=== PATIENT | female | born 1945 | race Caucasian/White ===

== ENCOUNTER 2018-04-11 08:35 | Day surgery (SDC) | payer OTHER ==
[~2018-04-11 08:35] MED LIST: FENTANYL 100MCG/2ML SOL ONE; LIDOCAINE HCL 1% MPF 30 SOL ONE; MIDAZOLAM 2 MG/2 ML SOL ONE; PROPOFOL 10 MG/ML EMU IV ONE
[2018-04-11] MEDS ORDERED: ROPIVACAINE HYDROCHLORIDE 5 MG/ML SOL ONE (09:12)
[2018-04-11] MEDS ORDERED: LIDOCAINE HCL 1% MPF 30 SOL ONE (09:12)
[2018-04-11] MEDS ORDERED: CEFAZOLIN SODIUM 1 GM PDS ONE (10:33)
[2018-04-11 13:51] VITALS: TEMP 97.2
[2018-04-11 13:52] VITALS: BP 140/85; PULSE 48; RESP 14; O2SAT 96
== END 2018-04-11 13:40 | disposition home or self-care (01) | DRG 845 ==
LOC: SURG 08:35
PROVIDERS: ATTEND Orthopaedic Surgery
DX: D48.7 Neoplasm of uncertain behavior of other specified sites (principal)
CPT/HCPCS: J0690; J2250; J2795; J3010; J2001; J2704